=== PATIENT | female | born 1985 ===

== ENCOUNTER 2016-12-19 13:17 | Emergency (ER) | payer SELFPAY ==
[2016-12-19 13:31] VITALS: BP 117/57
[2016-12-19 14:29] LABS: Bilirubin,Urine NEG (Negative); Blood,Urine NEG (Negative); Ketones,Urine TR mg/dL (Negative); Leukocyte Esterase,Urine NEG (Negative); Mucus,Urine 1+ /HPF; Nitrite,Urine NEG (Negative); Protein,Urine <15 mg/dL mg/dL (Negative); Urobilinogen,Urine < 2.0 mg/dL (<2.0)
[2016-12-19] MEDS ORDERED: XYLOCAINE 1% MPF 5 mL INFILTRATI ONE (14:53)
[2016-12-19] MEDS ORDERED: ZITHROMAX PO ONE (14:53)
[2016-12-19] MEDS ORDERED: ROCEPHIN IM ONE (14:53)
[2016-12-19] MEDS ORDERED: MOTRIN PO ONE (14:55)
--- NOTE | 2016-12-19 18:46 | Emergency Department Report ---
Entered by JOANA MURPHY, acting as scribe for DNOG DIEHL NP. ED Back Pain/Injury HPI - General Chief Complaint: Back Pain/Injury Stated Complaint: BACK PAIN/STD SCREENING Time Seen by Provider: 12/19/16 14:08 Source: patient Limitations: No Limitations - History of Present Illness Initial Comments: This is a 31 y/o female, nontoxic, well nourished in appearance, no acute signs of distress with PMHx of chronic back pain, presents with back pain that began 2 days ago after a fall down the stairs. Patient stated has been having chronic back pain that was dx with sciatica and is followed by a pain clinic. Patient states she went on her medication and would like refill for pain medication. Associates symptoms include aching lower back pain but she denies bladder/bowel instability, abd pain, CP, SOB, spinal pain, numbness, tingling, nausea, vomiting, fever and chills. Pain is described as 9/10 on a severity scale. Patient states she is under pain clinic for back pain but she is out of medication (2x months). She want to be tested for STDs in the ED. Pt is stated her spouse had a affair and now she is afraid of an STD. No alleviating or aggravating factors. Allergic to acetaminophen. MD Complaint: back pain, fall Onset/Timin -: days(s) Place: home Radiation: none Severity: severe Severity scale (0 -10): 9 Improves With: none Worsens With: none Context: fall Associated Symptoms: other (no bladder/bowel instability, no tingling). denies : confusion, weakness, chest pain, numbness, difficulty walking, cough, difficulty urinating, diaphoresis, incontinence, fever/chills, constipation, headaches, abdominal pain, loss of appetite, malaise, nausea/vomiting, rash, seizure, shortness of breath, syncope - Related Data Previous Rx's Medication Instructions Recorded Last Taken Type Vit/Iron Fumarate/FA 1 each PO QDAY #120 tablet 06/18/13 Unknown Rx [ Vitamin Tablet] Clindamycin 2% [Clindamycin Vag] 1 applicatio VG QHS 7 Days 06/27/13 Unknown Rx Hydrocodone/Ibuprofen [Vicoprofen 1 each PO Q6HR #10 tablet 01/28/14 Unknown Rx 200-7.5 mg Tab] Cyclobenzaprine [Flexeril] 10 mg PO TID PRN #15 tablet 12/19/16 Unknown Rx Ibuprofen [Motrin 800 MG tab] 800 mg PO Q8HR PRN #20 tablet 12/19/16 Unknown Rx metroNIDAZOLE [Flagyl] 500 mg PO Q12HR 7 Days 12/19/16 Unknown Rx Allergies Allergy/AdvReac Type Severity Reaction Status Date / Time acetaminophen [From Tylenol] Allergy Itching Verified 08/07/13 03:40 shrimp AdvReac Itching Uncoded 06/17/13 23:00 ED Review of Systems Comment: All other systems reviewed and negative Constitutional: denies: chills, fever Eyes: denies: eye pain, eye discharge, vision change ENT: denies: ear pain, throat pain Respiratory: denies: cough, shortness of breath, wheezing Cardiovascular: denies: chest pain, palpitations Endocrine: no symptoms reported Gastrointestinal: abdominal pain. denies: nausea, vomiting Genitourinary: denies: other (bladder/bowel instability) Musculoskeletal: back pain, other (knee pain) Skin: other (knee bruising due to fall, no numbness, no tingling ) Neurological: denies: headache, weakness, paresthesias Psychiatric: denies: anxiety, depression Hematological/Lymphatic: denies: easy bleeding, easy bruising ED Past Medical Hx - Past Medical History Previous Medical History?: Yes Additional medical history: Back pain - Surgical History Past Surgical History?: Yes Additional Surgical History: x 5 - Social History Smoking Status: Current Every Day Smoker Substance Use Type: Alcohol - Medications Home Medications: Home Medications Medication Instructions Recorded Confirmed Last Taken Type Vit/Iron Fumarate/FA 1 each PO QDAY #120 tablet 06/18/13 Unknown Rx [ Vitamin Tablet] Clindamycin 2% [Clindamycin Vag] 1 applicatio VG QHS 7 Days 06/27/13 Unknown Rx Hydrocodone/Ibuprofen [Vicoprofen 1 each PO Q6HR #10 tablet 08/07/13 Unknown Rx 200-7.5 mg Tab] Cyclobenzaprine [Flexeril] 10 mg PO TID PRN #15 tablet 12/19/16 Unknown Rx Ibuprofen [Motrin 800 MG tab] 800 mg PO Q8HR PRN #20 tablet 12/19/16 Unknown Rx metroNIDAZOLE [Flagyl] 500 mg PO Q12HR 7 Days 12/19/16 Unknown Rx ED Physical Exam - General Limitations: No Limitations General appearance: alert, in no apparent distress - Head Head exam: Present: atraumatic, normocephalic, normal inspection - Eye Eye exam: Present: normal appearance, PERRL, EOMI. Absent: scleral icterus, conjunctival injection, nystagmus, periorbital swelling, periorbital tenderness Pupils: Present: normal accommodation - ENT ENT exam: Present: normal exam, normal orophraynx, mucous membranes moist, TM's normal bilaterally, normal external ear exam - Neck Neck exam: Present: normal inspection, full ROM. Absent: tenderness, meningismus, lymphadenopathy, thyromegaly - Respiratory Respiratory exam: Present: normal lung sounds bilaterally. Absent: respiratory distress, wheezes, rales, rhonchi, stridor, chest wall tenderness, accessory muscle use, decreased breath sounds, prolonged expiratory - Cardiovascular Cardiovascular Exam: Present: regular rate, normal rhythm, normal heart sounds. Absent: bradycardia, tachycardia, irregular rhythm, systolic murmur, diastolic murmur, rubs, gallop - GI/Abdominal GI/Abdominal exam: Present: soft, normal bowel sounds. Absent: distended, tenderness, guarding, rebound, rigid, hyperactive bowel sounds, hypoactive bowel sounds, organomegaly, mass, bruit, pulsatile mass - External exam: Present: normal external exam. Absent: erythema, swelling, lesions, lacerations, ecchymosis, bleeding Speculum exam: Present: normal speculum exam. Absent: erythema, vaginal discharge, cervical discharge, vaginal bleeding, foreign body, tissue, laceration Bi-manual exam: Present: normal bi-manual exam. Absent: cervical motion tendernes, adnexal tenderness, adnexal mass, uterine enlargement, uterine tenderness - Extremities Exam Extremities exam: Present: normal inspection, full ROM, normal capillary refill. Absent: tenderness, pedal edema, joint swelling, calf tenderness - Expanded Lower Extremity Exam Left Hip exam: Present: normal inspection, full ROM, tenderness Upper Leg exam: Present: normal inspection, full ROM. Absent: tenderness, swelling, abrasion, laceration, ecchymosis, deformity, crepidus, dislocation, erythema Knee exam: Present: normal inspection, full ROM, full knee extension. Absent: tenderness, swelling, abrasion, laceration, ecchymosis, deformity, crepidus, dislocation, erythema, effusion, pain w/ pronation/supination, posterior draw sign, pain/laxity with valgus, pain/laxity with varus Lower Leg exam: Present: normal inspection, full ROM. Absent: tenderness, swelling, abrasion, erythema, palpable cord, Tiffanie's sign Ankle exam: Present: normal inspection, full ROM. Absent: tenderness, swelling , abrasion, laceration, anterior draw sign Foot/Toe exam: Present: normal inspection, full ROM. Absent: tenderness, swelling Neuro vascular tendon exam: Present: no vascular compromise Gait: Positive: observed and normal - Back Exam Back exam: Present: normal inspection, full ROM. Absent: tenderness, CVA tenderness (R), CVA tenderness (L), muscle spasm, paraspinal tenderness, vertebral tenderness, rash noted - Expanded Back Exam Expanded Back exam: Absent: saddle anesthesia Back exam: Negative Straight Leg Raising: Left, Right - Neurological Exam Neurological exam: Present: alert, oriented X3, CN II-XII intact, normal gait - Psychiatric Psychiatric exam: Present: normal affect, normal mood - Skin Skin exam: Present: warm, dry, intact, normal color. Absent: rash - Other Other exam information: During external/speculum exam byproduct engineer present Joana Murphy. Negative spinal tenderness. ED Course Vital Signs 12/19/16 13:27 Temperature 98.2 F Pulse Rate 77 Respiratory 20 Rate Blood Pressure 117/57 O2 Sat by Pulse 100 Oximetry ED Medical Decision Making - Medical Decision Making Ed course: This is a 31-year-old female that presents with chronic lower back pain and possible STD exposure, Trich and BV 1- after my physical exam, UA, urine has been obtained. 2- patient received Rocephin 250 mg and azithromycin 1 g for empirical treatment of gonorrhea chlamydia and was instructed to follow-up in 3-5 days to medical records to obtain gonorrhea Chlamydia results. 3- patient was instructed to follow-up with her primary care doctor in 3-5 days or if symptoms change or worsen report back to emergency room. 4- at time time of discharge, the patient does not seem toxic or ill in appearance. No acute signs of distress noted. Patient agrees to discharge treatment plan of care. No further questions noted by the patient. 5- Flagyl was prescribed. and pt notified not consume any alcohol while taking Flagyl and 1 week after. ED Disposition Clinical Impression: Possible exposure to STD, Trichomonas vaginitis, Bacterial vaginosis Back pain Qualifiers: Back pain location: low back pain Chronicity: chronic Back pain laterality: unspecified Sciatica presence: unspecified whether sciatica present Qualified Code(s): M54.5 - Low back pain; G89.29 - Other chronic pain Disposition: TO HOME OR SELFCARE Is pt being admited?: No Does the pt Need Aspirin: No Condition: Stable Instructions: Bacterial Vaginosis (ED), Safe Sex (ED), Chronic Back Pain (ED) Additional Instructions: Follow-up with her primary care doctor in 3-5 days or if symptoms change or worsen report back to emergency room. Return to [facility] medical records to obtained your gonorrhea and chlamydia results. Take ibuprofen 800 mg by mouth for pain as needed. Take Flexeril as prescribed for 5 days. Do not operate heavy machinery when taking a flexible due to sedation. Take Flagyl as prescribed. Do no consume any alcohol while taking Flagyl and 1 week after. Prescriptions: Cyclobenzaprine [Flexeril] 10 mg PO TID PRN #15 tablet PRN Reason: Muscle Spasm Ibuprofen [Motrin 800 MG tab] 800 mg PO Q8HR PRN #20 tablet PRN Reason: Pain metroNIDAZOLE [Flagyl] 500 mg PO Q12HR 7 Days Referrals: PRIMARY CARE, [Primary Care Provider] - 3-5 Days [facility] [Outside] - 3-5 Days [facility] [Outside] - 3-5 Days KACEY JENSEN JR, MD [Staff Physician] - 3-5 Days Forms: Work/School Release Form(ED), STI Treatment and Prevention This documentation as recorded by the JEFFREY wise ELIZABETH,accurately reflects the service I personally performed and the decisions made by ,DONG DIEHL, FIXED INCOME DIRECTOR.
== END 2016-12-19 15:43 | disposition home or self-care (01) ==
LOC: ED 13:17
DX: A59.01 Trichomonal vulvovaginitis (principal); N76.0 Acute vaginitis; F17.200 Nicotine dependence, unspecified, uncomplicated
CPT/HCPCS: 81001; 81025; 87210; 87591; 96372; 99283; J0696

== ENCOUNTER 2017-07-26 19:50 | Emergency (ER) | payer MEDICAID ==
[2017-07-26 21:38] LABS: Hematocrit 39.8 % (30.3-42.9); Mean Corpuscular HGB Conc 33 % (30-34); Mean Corpuscular Hemoglobin 31 pg (28-32); Mean Corpuscular Volume 95 fl (79-97); Platelet Count 253 K/mm3 (140-440); Red Blood Count 4.18 M/mm3 (3.65-5.03); Red Cell Distribution Width 13.1 % (13.2-15.2)
[2017-07-26 21:50] LABS: BUN/Creatinine Ratio 13; Blood Urea Nitrogen 9 mg/dL (7-17); Calcium 8.8 mg/dL (8.4-10.2); Hemolysis Index 6
--- NOTE | 2017-07-26 23:55 | Ultrasound Report ---
FINAL REPORT EXAM: US OB < = 14 WEEKS FETUS HISTORY: positive home preg with severe pelvic pain TECHNIQUE: Transabdominal and transvaginal sonography of the pelvis. PRIORS: None. FINDINGS: The uterus measures 10.1 x 4.5 x 5.8 cm and appears grossly unremarkable. The endometrial stripe measures 14 mm in AP dimension and may contain trace fluid. No apparent intrauterine gestational sac or IUP identified. The right ovary measures 2.6 x 1.9 x 2.3 cm and contains mildly complex, cystic focus measuring approximately 1.1 cm. The left ovary measures 2.7 x 1.7 x 2.4 cm and is grossly unremarkable. No adnexal masses, ring-like structures or significant free peritoneal fluid. IMPRESSION: 1. No IUP identified. Possibilities include early gestation, early failure, or ectopic . Correlation with serial beta-hCG levels and follow-up ultrasound may help in further evaluation. 2. Probable follicular change in the right ovary.
[2017-07-27 00:10] LABS: Bacteria,Urine 1+ /HPF (Negative); Bilirubin,Urine NEG (Negative); Blood,Urine NEG (Negative); Color,Urine Yellow (Yellow); Mucus,Urine FEW /HPF; Nitrite,Urine NEG (Negative); Protein,Urine <15 mg/dL mg/dL (Negative); Urobilinogen,Urine < 2.0 mg/dL (<2.0); WBC,Urine < 1.0 /HPF (0.0-6.0)
[2017-07-27] MEDS ORDERED: TYLENOL PO ONE (10:18)
[2017-07-27] MEDS ORDERED: FLEXERIL PO ONE (10:18)
--- NOTE | 2017-07-27 10:23 | Emergency Department Report ---
ED Female HPI - General Chief complaint: Abdominal Pain Stated complaint: FALL/ABDOMINAL PAIN/ Time Seen by Provider: 07/27/17 10:12 Source: patient Mode of arrival: Ambulatory Limitations: No Limitations - History of Present Illness Initial comments: Patient is a 31-year-old female who is presenting with lower back and abdominal cramping since a fall yesterday. 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 Patient had no head injury or loss of consciousness. Patient is last menstrual period was June 30. She does not know exactly how far along she is. However in calculating her dates by last menstrual period. She is very early in . Patient denies any vaginal bleeding vaginal discharge dysuria. Patient also denies fever chest pain. Abdominal pain is suprapubic crampy 5 out of 10 in severity. Patient has a history of back pain she states that her back pain is very typical of back pain she is having the past. Patient has had a history of miscarriage and is very concerned about miscarriage at this time. Last Menstrual Period: 06/30/17 EDC: 04/06/18 Associated Symptoms: abdominal pain. denies: vaginal discharge, vaginal bleeding, nausea/vomiting, fever/chills, headaches, loss of appetite, dysuria, hematuria, rash, seizure, shortness of breath, syncope, weakness - Related Data Previous Rx's Medication Instructions Recorded Last Taken Type Vit/Iron Fum/Folic AC 1 each PO QDAY #120 tablet 06/18/13 Unknown Rx [ Vitamin Tablet] Clindamycin 2% [Clindamycin Vag] 1 applicatio VG QHS 7 Days cream 06/27/13 Unknown Rx Hydrocodone/Ibuprofen [Vicoprofen 1 each PO Q6HR #10 tablet 08/07/13 Unknown Rx 200-7.5 mg Tab] Cyclobenzaprine [Flexeril] 10 mg PO TID PRN #15 tablet 12/19/16 Unknown Rx Ibuprofen [Motrin 800 MG tab] 800 mg PO Q8HR PRN #20 tablet 12/19/16 Unknown Rx metroNIDAZOLE [Flagyl] 500 mg PO Q12HR 7 Days tab 12/19/16 Unknown Rx Cyclobenzaprine HCl [Flexeril 5 MG 5 mg PO BID #10 tab 07/27/17 Unknown Rx TAB] Allergies Allergy/AdvReac Type Severity Reaction Status Date / Time acetaminophen [From Tylenol] Allergy Itching Verified 08/07/13 03:40 shrimp AdvReac Itching Uncoded 06/17/13 23:00 ED Review of Systems ROS: Stated complaint: FALL/ABDOMINAL PAIN/ Other details as noted in HPI Comment: All other systems reviewed and negative ED Past Medical Hx - Past Medical History Previous Medical History?: No Additional medical history: Back pain - Surgical History Additional Surgical History: x 5 - Social History Smoking Status: Current Every Day Smoker Substance Use Type: None - Medications Home Medications: Home Medications Medication Instructions Recorded Confirmed Last Taken Type Vit/Iron Fum/Folic AC 1 each PO QDAY #120 tablet 06/18/13 Unknown Rx [ Vitamin Tablet] Clindamycin 2% [Clindamycin Vag] 1 applicatio VG QHS 7 Days cream 06/27/13 Unknown Rx Hydrocodone/Ibuprofen [Vicoprofen 1 each PO Q6HR #10 tablet 08/07/13 Unknown Rx 200-7.5 mg Tab] Cyclobenzaprine [Flexeril] 10 mg PO TID PRN #15 tablet 12/19/16 Unknown Rx Ibuprofen [Motrin 800 MG tab] 800 mg PO Q8HR PRN #20 tablet 12/19/16 Unknown Rx metroNIDAZOLE [Flagyl] 500 mg PO Q12HR 7 Days tab 12/19/16 Unknown Rx Cyclobenzaprine HCl [Flexeril 5 MG 5 mg PO BID #10 tab 07/27/17 Unknown Rx TAB] ED Physical Exam - General Limitations: No Limitations General appearance: alert, in no apparent distress - Head Head exam: Present: atraumatic, normocephalic - Eye Eye exam: Present: normal appearance - ENT ENT exam: Present: mucous membranes moist - Neck Neck exam: Present: normal inspection - Respiratory Respiratory exam: Present: normal lung sounds bilaterally. Absent: respiratory distress - Cardiovascular Cardiovascular Exam: Present: regular rate, normal rhythm. Absent: systolic murmur, diastolic murmur, rubs, gallop - GI/Abdominal GI/Abdominal exam: Present: soft, normal bowel sounds - Extremities Exam Extremities exam: Present: normal inspection - Back Exam Back exam: Present: normal inspection - Neurological Exam Neurological exam: Present: alert, oriented X3 - Psychiatric Psychiatric exam: Present: normal affect, normal mood - Skin Skin exam: Present: warm, dry, intact, normal color. Absent: rash ED Course Vital Signs 07/26/17 07/26/17 07/27/17 20:00 20:20 07:57 Temperature 98.5 F 98.5 F 98.7 F Pulse Rate 71 64 67 Respiratory 16 18 18 Rate Blood Pressure 111/60 111/60 118/69 O2 Sat by Pulse 98 98 100 Oximetry ED Medical Decision Making - Lab Data Result diagrams: 07/26/17 20:30 07/26/17 20:30 Lab Results 07/26/17 07/26/17 07/26/17 Range/Units 20:30 20:30 20:30 WBC 5.6 (4.5-11.0) K/mm3 RBC 4.18 (3.65-5.03) M/mm3 Hgb 13.0 (10.1-14.3) gm/dl Hct 39.8 (30.3-42.9) % MCV 95 (79-97) fl MCH 31 (28-32) pg MCHC 33 (30-34) % RDW 13.1 L (13.2-15.2) % Plt Count 253 (140-440) K/mm3 Sodium 138 (137-145) mmol/L Potassium 4.1 (3.6-5.0) mmol/L Chloride 99.0 (98-107) mmol/L Carbon Dioxide 25 (22-30) mmol/L Anion Gap 18 mmol/L BUN 9 (7-17) mg/dL Creatinine 0.7 (0.7-1.2) mg/dL Estimated GFR > 60 ml/min BUN/Creatinine Ratio 13 % Glucose 89 (65-100) mg/dL Calcium 8.8 (8.4-10.2) mg/dL HCG, Quant 385.2 H (0-4) mIU/mL Urine Color (Yellow) Urine Turbidity (Clear) Urine pH (5.0-7.0) Ur Specific [place] (1.003-1.030) Urine Protein (Negative) mg/dL Urine Glucose (UA) (Negative) mg/dL Urine Ketones (Negative) mg/dL Urine Blood (Negative) Urine Nitrite (Negative) Urine Bilirubin (Negative) Urine Urobilinogen (<2.0) mg/dL Ur Leukocyte Esterase (Negative) Urine WBC (Auto) (0.0-6.0) /HPF Urine RBC (Auto) (0.0-6.0) /HPF U Epithel Cells (Auto) (0-13.0) /HPF Urine Bacteria (Auto) (Negative) /HPF Urine Mucus /HPF Blood Type 07/26/17 07/26/17 Range/Units 20:30 21:44 WBC (4.5-11.0) K/mm3 RBC (3.65-5.03) M/mm3 Hgb (10.1-14.3) gm/dl Hct (30.3-42.9) % MCV (79-97) fl MCH (28-32) pg MCHC (30-34) % RDW (13.2-15.2) % Plt Count (140-440) K/mm3 Sodium (137-145) mmol/L Potassium (3.6-5.0) mmol/L Chloride (98-107) mmol/L Carbon Dioxide (22-30) mmol/L Anion Gap mmol/L BUN (7-17) mg/dL Creatinine (0.7-1.2) mg/dL Estimated GFR ml/min BUN/Creatinine Ratio % Glucose (65-100) mg/dL Calcium (8.4-10.2) mg/dL HCG, Quant (0-4) mIU/mL Urine Color Yellow (Yellow) Urine Turbidity Clear (Clear) Urine pH 6.0 (5.0-7.0) Ur Specific [place] 1.017 (1.003-1.030) Urine Protein <15 mg/dl (Negative) mg/dL Urine Glucose (UA) Neg (Negative) mg/dL Urine Ketones Neg (Negative) mg/dL Urine Blood Neg (Negative) Urine Nitrite Neg (Negative) Urine Bilirubin Neg (Negative) Urine Urobilinogen < 2.0 (<2.0) mg/dL Ur Leukocyte Esterase Neg (Negative) Urine WBC (Auto) < 1.0 (0.0-6.0) /HPF Urine RBC (Auto) 3.0 (0.0-6.0) /HPF U Epithel Cells (Auto) 2.0 (0-13.0) /HPF Urine Bacteria (Auto) 1+ (Negative) /HPF Urine Mucus Few /HPF Blood Type A POSITIVE - Radiology Data Radiology results: report reviewed No IUP seen - Medical Decision Making Patient is a 31-year-old female who is very early in who fell. The patient has no point tenderness over bilateral. Abdomen feels though x-rays are indicated at this time. Patient's Quant was 385. This does mention that to not seeing an IUP at this time. Patient's been counseled on [id number] drugs that she should use she also be given a prescription for Flexeril has been told to use ice for her back. Patient discharged home to rest and return if vaginal bleeding starts. Critical Care Time: No Critical care attestation.: If time is entered above; I have spent that time in minutes in the direct care of this critically ill patient, excluding procedure time. ED Disposition Clinical Impression: Early stage of , Abdominal pain affecting Back pain, acute Qualifiers: Back pain location: low back pain Back pain laterality: unspecified Sciatica presence: with sciatica Sciatica laterality: sciatica laterality unspecified Qualified Code(s): M54.40 - Lumbago with sciatica, unspecified side Disposition: - TO HOME OR SELFCARE Is pt being admited?: No Does the pt Need Aspirin: No Condition: Stable Instructions: Abdominal Pain (ED), (ED) Prescriptions: Cyclobenzaprine HCl [Flexeril 5 MG TAB] 5 mg PO BID #10 tab Referrals: PRIMARY CARE, [Primary Care Provider] - 3-5 Days
[2017-07-27 10:51] VITALS: BP 117/56
== END 2017-07-27 10:51 | disposition home or self-care (01) ==
LOC: ED 19:50
DX: O26.891 Other specified pregnancy related conditions, first trimester (principal); M54.40 Lumbago with sciatica, unspecified side; R10.30 Lower abdominal pain, unspecified; F17.200 Nicotine dependence, unspecified, uncomplicated; Z91.013 Allergy to seafood; Z88.6 Allergy status to analgesic agent; Z3A.01 Less than 8 weeks gestation of pregnancy
CPT/HCPCS: 36415; 76801; 76817; 80048; 81001; 84702; 85027; 86900; 86901